=== PATIENT | female | born 1995 | race Caucasian/White ===

== ENCOUNTER 2019-04-04 12:25 | Emergency (ER) | payer OTHER, SELFPAY ==
[2019-04-04 12:31] VITALS: BP 117/71; PULSE 71; RESP 18; TEMP 36.2; O2SAT 99
--- NOTE | 2019-04-04 12:54 | ED.FEMALEGU ---
HPI - Female Genitourinary General Chief complaint: Urogenital-Female Stated complaint: UTI SYMPTOMS Source: patient and RN notes reviewed Mode of arrival: ambulatory Limitations: no limitations History of Present Illness HPI Narrative: The patient, previously mostly healthy non-smoker/occasional drinker, presents with a shorter couple day history of urinary frequency, urgency and dysuria. No fever, low back pain, vaginal discharge [she declines STD testing, indicating she has had prior and recent [employer] evaluation]. Symptoms are mild, worse with urination; Prior UTI last summer with haile-sensitive E. coli Related Data Allergies Allergy/AdvReac Type Severity Reaction Status Date / Time lactose Allergy Intermediate Nausea and Verified 04/04/19 12:30 Vomiting peach Allergy Intermediate Other Verified 04/04/19 12:30 Review of Systems Review of Systems: Narrative: General/Constitutional: No weight loss,fever Eyes: N0: Redness,discharge Ears/Nose/Throat: No: Epistaxis,ear discharge Respiratory: Denies: Hemoptysis Gastrointestinal: No Vomiting, Bleeding-rectal Skin: No Lumps, eruption Neurologic: No Focal Weakness,Sz Hematologic: Denies: Petechiae/Purpura Psychiatric: No: Suicida ideationl All Other Systems: Reviewed and Negative [facility] Social History Social History Smoking status: Never smoker Second hand tobacco smoke exposure: No Alcohol intake: current Comments At time of signature, agree with nursing past medical, surgical, social and family history. There is no relevant family history pertinent to the presenting complaint Exam Narrative: Exam Narrative: General Appearance: Well appearing, No distress EYE: PERRLA, Conjunctiva clear Ears: External ear normal Nose: Normal nose Mouth/Throat: Normal appearing, Normal lips Neck: Supple Respiratory: Airway patent, No respiratory distress Cardiovascular: RRR Abdomen: Soft, Non-tender, No massess, No organomegaly (no rebound/ surgical signs), Musculoskeletal: Full ROM Skin: Warm, Dry Neurological: A&O x3, CN II-X intact Psychiatric: Normal mood, Normal affect Course Vital Signs Vital signs: Vital Signs Temperature 97.1 F L 04/04/19 12:31 Pulse Rate 71 04/04/19 12:31 Respiratory Rate 18 04/04/19 12:31 Blood Pressure 117/71 04/04/19 12:31 Pulse Oximetry 99 04/04/19 12:31 Temperature 97.1 F L 04/04/19 12:31 Pulse Rate 71 04/04/19 12:31 Respiratory Rate 18 04/04/19 12:31 Blood Pressure 117/71 04/04/19 12:31 Pulse Oximetry 99 04/04/19 12:31 MDM - Female Genitourinary Lab Data Labs: Urine Glucose Negative Reference Range: Negative Urine Bilirubin Negative Reference Range: Negative Urine Ketone Negative Reference Range: Negative Urine Specific [place] 1.025 Reference Range:1.001-1.035 Urine Blood 2+ Reference Range: Negative * * Urine pH 7.5 Reference Range: 5.0-9.0 Urine Protein 2+ Reference Range: Negative Urine Urobilinogen 0.2 Reference Range: 0.2-1.0 Urine Nitrate Positive Reference Range: Negative Urine Leukocyte 2+ Reference Range: Negative Urine Color Yellow Reference Range: Yellow Urine Characteristics Cloudy Discharge Plan Discharge Clinical Impression: Urinary tract infection Qualifiers: Urinary tract infection type: acute cystitis Hematuria presence: without hematuria Qualified Code(s): N30.00 - Acute cystitis without hematuria Patient Disposition: Home, Self-Care Condition: Stable Instructions: Antibiotic Form, Urinary Tract Infection in Women (ED) Prescriptions:
== END 2019-04-04 12:45 | disposition home or self-care (01) ==
PROVIDERS: Emergency Provider Emergency Medicine; PCP Student in an Organized Health Care Education/Training Program
DX: N30.00 Acute cystitis without hematuria (principal)
CPT/HCPCS: 81003; 99213; G0463

== ENCOUNTER 2020-07-05 11:13 | Emergency (ER) | payer BC, SELFPAY ==
[2020-07-05 11:19] VITALS: BP 126/78; PULSE 111; RESP 12; TEMP 36.8; O2SAT 98
--- NOTE | 2020-07-05 11:32 | ED.URI ---
HPI - URI/Sore Throat General Chief Complaint: Upper Respiratory Infection Stated Complaint: upper respiratory infection Time Seen by Provider: 07/05/20 11:32 Source: patient Mode of arrival: ambulatory Limitations: no limitations History of Present Illness HPI Narrative: 24 year old female who presents to [facility] with complaints of sore throat, cough, nasal congestion and drainage starting on Saturday night. On Saturday she has experienced episodes of diarrhea with complaints of nausea with no vomiting and headache pain with complaints today of loss of taste and smell. 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 Patient states that she knows of no fevers, chills or sweats, denies any shortness of breath or any wheezing. MD elicited complaint: cough, sore throat, rhinorrhea, nasal congestion and other (diarrhea) Onset (ago): day(s) (2 1/2 days ago ) Consistency: constant Severity: moderate Description of mucous: clear Able to tolerate fluids by mouth: Yes Exacerbating factors: swallowing Relieving factors: nothing Associated symptoms: headache, rhinorrhea, nasal congestion, sore throat, cough and diarrhea Treatments prior to arrival: acetaminophen, ibuprofen and cold medicine Related Data Allergies Allergy/AdvReac Type Severity Reaction Status Date / Time lactose Allergy Intermediate Nausea and Verified 03/11/20 11:34 Vomiting peach Allergy Intermediate Other Verified 03/11/20 11:34 Review of Systems Review of Systems: Narrative: CONSTITUTIONAL: Denies fever, chills, or sweats. EYES: Denies visual changes, redness, or discharge. ENT: Positive rhinorrhea, congestion,positive sore throat, no otalgia. CARDIOVASCULAR: Denies chest pain, palpitations, or edema. RESPIRATORY:Positive for cough denies dyspnea. GASTROINTESTINAL: Denies abdominal pain,positive nausea,diarrhea no vomiting GENITOURINARY: Denies dysuria or hematuria. SKIN: Denies rash or itching. MUSCULOSKELETAL: Denies back pain, joint pain, or myalgia. NEUROLOGIC: Positive headache,no numbness, or weakness. PSYCHIATRIC: Denies anxiety or depression. All systems reviewed & are unremarkable except as noted in HPI and below PMFSH Past Medical History Medical History (Updated 07/07/20 @ 14:50 by Nyla Clark NP) GERD (gastroesophageal reflux disease) IBS (irritable bowel syndrome) Surgical History Surgical History History of cholecystectomy Family History Family History (Updated 07/07/20 @ 14:43 by Nyla Clark NP) Other No significant family history Social History Social History (Updated 07/05/20 @ 11:36 by Nyla Clark NP) Smoking status: Never smoker Tobacco type: e-cigarettes/vaping Second hand tobacco smoke exposure: No Alcohol intake: current Comments At time of signature, agree with nursing past medical, surgical, social and family history. There is no relevant family history pertinent to the presenting complaint Exam Narrative: Exam Narrative: GENERAL: Well-appearing, well-nourished, and in no acute distress. HEAD: Normocephalic, atraumatic. EYES: PERRLA and EOMI. ENT: Nares mild redness with clear rhinorrhea no epistaxis. Mucous membranes moist.TM's normal with good light reflex, throat mildly red with no lesions or exudates, no tonsil hypertrophy. NECK: Supple.no lymphadenopathy CHEST: Clear to auscultation. No respiratory distress.no acute loose sounding cough, no tachypnea or accessory muscle use, SAO2 98% on room air. HEART: Regular rate and rhythm. No murmur heard. Normal peripheral pulses. ABDOMEN: Soft, nontender, nondistended, normal active bowel sounds.reports nausea with diarrhea stools X2 today denies any blood or mucoid stools EXTREMITIES: Normal range of motion. No edema. SKIN: Warm, dry, no rash. NEURO: No focal deficits. Alert an
[2020-07-06 17:04] LABS: SARS-CoV-2 RNA PCR Negative
== END 2020-07-05 12:22 | disposition home or self-care (01) ==
PROVIDERS: Emergency Provider Registered Nurse
DX: J06.9 Acute upper respiratory infection, unspecified (principal); Z20.822 Contact with and (suspected) exposure to COVID-19; F17.200 Nicotine dependence, unspecified, uncomplicated; K21.9 Gastro-esophageal reflux disease without esophagitis
CPT/HCPCS: 87081; 87426; 87804; 87880; 99213; C9803; G0463; U0003; U0005

== ENCOUNTER 2020-08-08 17:17 | Emergency (ER) | payer BC, SELFPAY ==
[2020-08-08 17:22] VITALS: BP 124/78; PULSE 81; RESP 16; TEMP 36.8; O2SAT 100
--- NOTE | 2020-08-08 17:24 | ED.EAR ---
HPI - Ear Problem General Chief complaint: Ear Stated complaint: ear pain Time Seen by Provider: 08/08/20 17:24 Source: patient and RN notes reviewed History of Present Illness HPI Narrative: Patient is a 24-year-old female who presents the urgent care with complaints of right ear pain that started this morning. Patient states that its been really aggravating throughout the day. Denies of any use of [id number] medication for her pain. Denies of any fever, chills, nausea, vomiting, other upper respiratory complaints. No other acute complaints. No acute distress noted. Patient aware of the plan of care. Some parts of this dictation were generated by voice recognition software and may contain typographical and/or grammatical inaccuracies. Related Data Allergies Allergy/AdvReac Type Severity Reaction Status Date / Time lactose Allergy Intermediate Nausea and Verified 08/08/20 17:28 Vomiting peach Allergy Intermediate Other Verified 08/08/20 17:28 Review of Systems Review of Systems: Narrative: CONSTITUTIONAL: Denies fever, chills, or sweats. EYES: Denies visual changes, redness, or discharge. ENT: Reports of right otalgia CARDIOVASCULAR: Denies chest pain, palpitations, or edema. RESPIRATORY: Denies cough or dyspnea. GASTROINTESTINAL: Denies abdominal pain, nausea, vomiting, or diarrhea. GENITOURINARY: Denies dysuria or hematuria. SKIN: Denies rash or itching. MUSCULOSKELETAL: Denies back pain, joint pain, or myalgia. NEUROLOGIC: Denies headache, numbness, or weakness. All other systems reviewed are negative, except as documented in HPI. ON LICENSE OF [facility] Past Medical History Medical History (Updated 08/08/20 @ 17:30 by KATINA Lamar) GERD (gastroesophageal reflux disease) IBS (irritable bowel syndrome) Surgical History Surgical History History of cholecystectomy Family History Family History (Updated 07/07/20 @ 14:43 by Nyla Clark NP) Other No significant family history Social History Social History (Updated 07/05/20 @ 11:36 by Nyla Clark NP) Smoking status: Never smoker Tobacco type: e-cigarettes/vaping Second hand tobacco smoke exposure: No Alcohol intake: current Comments At the time of my signature, I reviewed and agree with the nursing past medical, surgical, social, and family history. There is no relevant family history pertinent to the patient complaint. Exam Narrative: Exam Narrative: GENERAL: This is a well-nourished, well-developed patient, in no apparent distress. HEAD: normocephalic, atraumatic. EYES: PERRL. Sclera clear/white. Vision is grossly intact. EARS: External ears normal, auditory canals clear and without drainage, very mild fluid noted behind right TM without otitis, bilateral TMs normal without perforation. Hearing grossly intact. NOSE: External nose normal with no obvious nasal discharge, nares without redness, no rhinorrhea. THROAT: Mucous membranes moist, posterior pharynx clear. NECK: Neck supple, non-tender without lymphadenopathy, masses or thyromegaly. CARDIOVASCULAR: Regular rate and rhythm without murmurs, gallops, or rubs. RESPIRATORY: Clear to auscultation. Breath sounds equal bilaterally. No wheezes, rales, or rhonchi. SKIN: warm, intact with no suspicious lesions or rash, good texture and turgor. NEURO: awake, alert, and oriented to person, place and time. There were no obvious focal neurologic abnormalities. EXTREMITIES: No clubbing, cyanosis, or edema. Course Vital Signs Vital signs: Vital Signs Temperature 98.2 F 08/08/20 17:22 Pulse Rate 81 08/08/20 17:22 Respiratory Rate 16 08/08/20 17:22 Blood Pressure 124/78 08/08/20 17:22 Pulse Oximetry 100 08/08/20 17:22 Temperature 98.2 F 08/08/20 17:22 Pulse Rate 81 08/08/20 17:22 Respiratory Rate 16 08/08/20 17:22 Blood Pressure 124/78 08/08/20 17:22 Pulse Oximetry 100 08/08/20 17:22 Review
== END 2020-08-08 17:34 | disposition home or self-care (01) ==
PROVIDERS: Emergency Provider Nurse Practitioner Family
DX: H92.01 Otalgia, right ear (principal); K21.9 Gastro-esophageal reflux disease without esophagitis
CPT/HCPCS: 99211; G0463

== ENCOUNTER 2020-11-16 11:07 | Emergency (ER) | payer BC, SELFPAY ==
[2020-11-16 11:17] VITALS: BP 128/75; PULSE 82; RESP 16; TEMP 36.8; O2SAT 100
--- NOTE | 2020-11-16 11:49 | ED.URI ---
HPI - URI/Sore Throat General Chief Complaint: Upper Respiratory Infection Stated Complaint: CONGESTION/SORE THROAT Time Seen by Provider: 11/16/20 11:39 Source: patient and RN notes reviewed Mode of arrival: ambulatory Limitations: no limitations History of Present Illness HPI Narrative: Patient presents today with a 2 to 3-day history of nasal congestion, postnasal drip, headache. Denies fever or shortness of breath. She has been taking ibuprofen for her headache with mild relief. She has been vaccinated against COVID-19. States she ate a granola bar this morning and had decreased taste MD elicited complaint: nasal congestion Related Data Allergies Allergy/AdvReac Type Severity Reaction Status Date / Time lactose Allergy Intermediate Nausea and Verified 08/08/20 17:28 Vomiting peach Allergy Intermediate Other Verified 08/08/20 17:28 Review of Systems Review of Systems: CONSTITUTIONAL: Denies body aches, fever, chills, or sweats. EYES: Denies visual changes, redness, or discharge. ENT: Denies rhinorrhea, sore throat, or otalgia.+ Nasal congestion, postnasal drip, decreased taste CARDIOVASCULAR: Denies chest pain, palpitations, or edema. RESPIRATORY: Denies cough or dyspnea. GASTROINTESTINAL: Denies abdominal pain, nausea, vomiting, or diarrhea. GENITOURINARY: Denies dysuria or hematuria. SKIN: Denies rash, itching, or wounds. MUSCULOSKELETAL: Denies back pain, joint pain, or myalgia. NEUROLOGIC: Denies numbness, tingling, or weakness.+ Headache PSYCH: Denies depression or anxiety. [facility] Past Medical History Medical History GERD (gastroesophageal reflux disease) IBS (irritable bowel syndrome) Surgical History Surgical History History of cholecystectomy Family History Family History Other No significant family history Social History Social History Smoking status: Never smoker Tobacco type: e-cigarettes/vaping Second hand tobacco smoke exposure: No Alcohol intake: current Comments At time of signature, I have reviewed and agree with nursing past medical, surgical, social and family history unless otherwise noted. Please see nursing chart for further information. There is no relevant family history pertinent to the presenting complaint Exam Narrative: GENERAL: Well-appearing, well-nourished, and in no acute distress. HEAD: Normocephalic, atraumatic. EYES: EOMI. No redness or drainage. Conjunctivae normal. ENT: Mucous membranes pink and moist. Nares congested. No rhinorrhea. TMs normal bilaterally. Throat normal. Uvula midline. NECK: Normal AROM. Supple. No lymphadenopathy. CHEST: No respiratory distress. Clear to auscultation. HEART: Regular rate and rhythm. No murmur appreciated. Normal peripheral pulses. EXTREMITIES: Normal range of motion. No edema. SKIN: Warm, dry, no rash. Capillary refill normal. Normal skin turgor. NEURO: No focal deficits. Alert and oriented x3. Gait steady. PSYCH: Normal affect. No signs of depression or anxiety. Course Vital Signs Vital signs: Vital Signs Temperature 98.2 F 11/16/20 11:17 Pulse Rate 82 11/16/20 11:17 Respiratory Rate 16 11/16/20 11:17 Blood Pressure 128/75 11/16/20 11:17 Pulse Oximetry 100 11/16/20 11:17 Temperature 98.2 F 11/16/20 11:17 Pulse Rate 82 11/16/20 11:17 Respiratory Rate 16 11/16/20 11:17 Blood Pressure 128/75 11/16/20 11:17 Pulse Oximetry 100 11/16/20 11:17 Reviewed. Pt has been instructed to follow up with her PCP regarding her elevated blood pressure today. MDM - URI/Sore Throat Differential Diagnosis Differential diagnosis: Likely upper respiratory infection, sinusitis, viral infection and other (COVID-19) Lab Data Attestation: I reviewed
== END 2020-11-16 12:20 | disposition home or self-care (01) ==
PROVIDERS: Emergency Provider Nurse Practitioner
DX: J06.9 Acute upper respiratory infection, unspecified (principal); Z20.822 Contact with and (suspected) exposure to COVID-19; F17.200 Nicotine dependence, unspecified, uncomplicated; K21.9 Gastro-esophageal reflux disease without esophagitis
CPT/HCPCS: 87426; 99213; C9803; G0463

== ENCOUNTER 2021-09-05 07:06 | Emergency (ER) | payer BC, SELFPAY ==
--- NOTE | ~2021-09-05 | US_ITS ---
EXAMINATION: US pelvic complete w TV DATE: 09/05/2021 07:47 INDICATION: Right adnexal pain. TECHNIQUE: Multiple transabdominal and transvaginal sonographic images of the pelvis were obtained. COMPARISON: Ultrasound 07/30/2017 FINDINGS: TRANSABDOMINAL ULTRASOUND: The uterus measures 6.2 x 4.7 x 4.0 cm. There is physiologic free fluid in the pelvis. TRANSVAGINAL ULTRASOUND: The endometrial complex measures 5 mm in thickness. There is a 2.5 cm subserosal fibroid. The right o vary measures 4.5 x 4.2 x 3.8 cm. There is a 3.8 cm cyst in right ovary. There is normal vascular vee w in right ovary. The left ovary is not visualized. IMPRESSION: 1. 3.8 cm cyst in right ovary, likely a follicular cyst. 2. Uterine fibroid. Reviewed, dictated and finalized at location A.
[2021-09-05 07:09] VITALS: BP 146/101; PULSE 99; RESP 16; TEMP 36.7; O2SAT 99
--- NOTE | 2021-09-05 07:18 | ED.ABDPAIN ---
HPI - Abdominal Pain General Chief Complaint: Abdominal Pain Stated Complaint: lower ABD pain Time Seen by Provider: 09/05/21 07:12 History of Present Illness HPI narrative: 25-year-old female presents emergency room secondary some right lower abdominal pain. Is been going on for several days now progressively worse. She had a history of ovarian cyst in the past she thinks that maybe was going on at this time. She is on control pills her last menstrual period was noted to be 2 weeks ago. Denies any chills fevers nausea vomiting. She got a good appetite. No urinary complaints been noted. 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 Related Data Allergies Allergy/AdvReac Type Severity Reaction Status Date / Time peach Allergy Intermediate Other Verified 09/05/21 07:17 lactose AdvReac Intermediate Nausea and Verified 09/05/21 07:19 Vomiting Review of Systems Review of Systems: CONSTITUTIONAL: Denies fever, chills, or sweats. EYES: Denies visual changes, redness, or discharge. ENT: Denies rhinorrhea, congestion, sore throat, or otalgia. CARDIOVASCULAR: Denies chest pain, palpitations, or edema. RESPIRATORY: Denies cough or dyspnea. GASTROINTESTINAL: Denies nausea, vomiting, or diarrhea. Pain in the right suprapubic region GENITOURINARY: Denies dysuria or hematuria. SKIN: Denies rash or itching. MUSCULOSKELETAL: Denies back pain, joint pain, or myalgia. NEUROLOGIC: Denies headache, numbness, or weakness. PSYCHIATRIC: Denies anxiety or depression. PMFSH Past Medical History Medical History GERD (gastroesophageal reflux disease) History of COVID-19 01/2021 IBS (irritable bowel syndrome) Surgical History Surgical History History of cholecystectomy Family History Family History Other No significant family history Social History Social History Smoking status: Never smoker Tobacco type: e-cigarettes/vaping Second hand tobacco smoke exposure: No Alcohol intake: current Exam Narrative: APPEARANCE: Well appearing, no pain or distress, well-nourished. Head normocephalic and atraumatic. EYES: PERRLA/EOMI, conjunctivae very clear. NOSE: Normal with no drainage EARS:TMS clear Sarwat Garcia, with good light reflex. THROAT: Pharynx clear, no exudate. NECK: Supple. No adenopathy, no masses. RESPIRATORY: Airway patent, respirations nonlabored. Clear to auscultation bilaterally, no rales, rhonchi, wheezing. CARDIOVASCULAR: Regular rate and rhythm without murmurs, rubs, or gallops. ABDOMINAL: Soft, nondistended, no hepatosplenomegaly. Right suprapubic pain noted. No rebound rigidity guarding. Musculoskeletal: Moves all extremities. Strength/ROM intact, No edema, No calf tenderness. NEURO: Alert. Cranial nerves II through XII intact. Normal gait. Good coordination. Nonfocal examination. SKIN:: Warm, dry. Normal Color PSYCHIATRIC: Normal affect/mood, normal interaction Course Vital Signs Vital signs: Vital Signs Temperature 98.1 F 09/05/21 07:09 Pulse Rate 99 09/05/21 07:09 Respiratory Rate 16 09/05/21 07:09 Blood Pressure 146/101 H 09/05/21 07:09 Pulse Oximetry 99 09/05/21 07:09 Oxygen Delivery Room Air 09/05/21 07:09 Temperature 98.1 F 09/05/21 07:09 Pulse Rate 99 09/05/21 07:09 Respiratory Rate 16 09/05/21 07:09 Blood Pressure 146/101 H 09/05/21 07:09 Pulse Oximetry 99 09/05/21 07:09 Oxygen Delivery Room Air 09/05/21 07:09 MDM - Abdominal Pain MDM Narrative Medical decision making narrative: Ultrasound confirmed that she has a right ovarian cyst. Copy the ultrasound report was actually given to her so she can take it to her physician. This is just pain management. Patient now confesses that she has not been taking h
[2021-09-05] MEDS: NAPROXEN 500 MG TABLET PO (07:30)
[2021-09-05 08:00] LABS: Appearance Urine Slightly Cloudy (Clear); Bilirubin Urine Negative (Negative); Blood Urine Trace-lysed (Negative); Color Urine Yellow (Yellow); Glucose Urine UA Negative (Negative); Ketones Urine Negative (Negative); Leukocyte Esterase Ur Negative LEU/UL (Negative); Nitrate Urine Negative (Negative); Protein Urine Negative (Negative); Specific Grav Ur 1.025 (1.001-1.035); Urobilinogen Urine 0.2 mg/dL (<2.0); pH Urine 5.5 (5.0-9.0)
[2021-09-05 08:06] LABS: Bacteria Urine 3+ /hpf; Mucus Urine Few /lpf; RBC Urine 0-2 /hpf (0-2); Squamous Epithelial Cell Urine Many /hpf (Few)
[2021-09-05 08:07] LABS: Add Urine Microscopic? YES
== END 2021-09-05 08:21 | disposition home or self-care (01) ==
PROVIDERS: Emergency Provider Emergency Medicine
DX: N83.201 Unspecified ovarian cyst, right side (principal); R10.9 Unspecified abdominal pain; K21.9 Gastro-esophageal reflux disease without esophagitis; Z86.16 Personal history of COVID-19
CPT/HCPCS: 76830; 76856; 81001; 81025; 99284; A9270

== ENCOUNTER 2021-12-15 00:09 | Emergency (ER) | payer BC, SELFPAY ==
--- NOTE | ~2021-12-15 | CT_ITS ---
EXAMINATION: CT abdomen pelvis w con DATE: 12/15/2021 03:41 INDICATION: Right lower quadrant pain TECHNIQUE: Computed tomography (CT) of the abdomen and pelvis was performed with 100 cc Omnipaque 350 intravenous contrast. The dose-length product was 582.89 mGy-cm. Automated exposure control and iter ative reconstruction technique were employed. COMPARISON: CT dated 12/15/2021. FINDINGS: Lung bases are unremarkable. Heart size normal. No significant pleural or pericardial effus ion. There are cholecystectomy clips. The spleen, pancreas, adrenal glands and left kidney are unrema rkable. There is a 3 mm obstructing distal right ureteral stone near the UVJ with mild hydroureterone phrosis. There is asymmetrically delayed right renal nephrogram consistent with high-grade obstructio n. Mild perinephric edema. There is a 5 x 3.7 cm right ovarian cyst. Nonobstructing bowel gas pattern. Normal appendix. No acute osseous abnormality. Mild spondylosis at L5-S1. IMPRESSION: 1. Distal right ureteral stone measuring 3 mm with obstruction resulting in mild hydronephrosis and d elayed right renal nephrogram. 2: Right ovarian cyst measuring 5 cm. Reviewed, dictated and finalized at location A. IMPRESSION: 1. Distal right ureteral stone measuring 3 mm with obstruction resulting in mil d hydronephrosis and delayed right renal nephrogram. 2: Right ovarian cyst measuring 5 cm.
[2021-12-15 00:11] VITALS: BP 134/82; PULSE 80; RESP 18; TEMP 36.3; O2SAT 100
--- NOTE | 2021-12-15 01:15 | ED.ABDPAIN ---
HPI - Abdominal Pain General Chief Complaint: Back Pain/Injury Stated Complaint: back pain Time Seen by Provider: 12/15/21 00:49 History of Present Illness HPI narrative: This is a 26-year-old female with past medical history of right-sided ovarian cyst and cholecystectomy, who presents to the emergency department complaining of right lower quadrant abdominal pain. She states pain began earlier this evening, is described as dull and cramping, 6 out of 10, radiating towards the pelvis and groin, associated with some nausea. She states the pain initially improved with ibuprofen but has returned and has not improved. She states she had a bowel movement today and is able to pass gas. She states she is currently on her menstrual cycle. She has no other complaints. Related Data Allergies Allergy/AdvReac Type Severity Reaction Status Date / Time peach Allergy Intermediate Other Verified 12/15/21 02:58 lactose AdvReac Intermediate Nausea and Verified 12/15/21 02:58 Vomiting Review of Systems Review of Systems: CONSTITUTIONAL: Denies fever, chills, or sweats. EYES: Denies visual changes, redness, or discharge. ENT: Denies rhinorrhea, congestion, sore throat, or otalgia. CARDIOVASCULAR: Denies chest pain, palpitations, or edema. RESPIRATORY: Denies cough or dyspnea. GASTROINTESTINAL: Abdominal pain, nausea denies vomiting, or diarrhea. GENITOURINARY: Denies dysuria or hematuria. SKIN: Denies rash or itching. MUSCULOSKELETAL: Denies back pain, joint pain, or myalgia. NEUROLOGIC: Denies headache, numbness, dizziness, or weakness. PSYCHIATRIC: Denies anxiety or depression. [facility] Past Medical History Medical History GERD (gastroesophageal reflux disease) History of COVID-19 01/2021 IBS (irritable bowel syndrome) Surgical History Surgical History History of cholecystectomy Family History Family History Other No significant family history Social History Social History Smoking status: Never smoker Tobacco type: e-cigarettes/vaping Second hand tobacco smoke exposure: No Alcohol intake: current Exam Narrative: GENERAL: Well-developed, well-nourished, appears uncomfortable HEAD: Normocephalic, atraumatic. EYES: PERRLA and EOMI. ENT: Nares clear, no rhinorrhea or epistaxis. Mucous membranes moist. Oropharynx without tonsillar hypertrophy exudate or other lesions. NECK: Supple. No adenopathy or masses. No carotid bruits or JVD CHEST: Clear to auscultation. No respiratory distress. No wheezes rales or rhonchi HEART: Regular rate and rhythm. No murmur heard. Normal peripheral pulses. ABDOMEN: Soft, tender to palpation in the right lower quadrant without rebound, nondistended, normal active bowel sounds. EXTREMITIES: Normal range of motion. No edema. SKIN: Warm, dry, no rash. NEURO: No focal deficits. Alert and oriented x3. PSYCH: Normal mood and affect. Course Course Emergency Course: 04:20 - Reassessed patient, she feels improved. CT shows a 2 x 2mm right-sided kidney stone with hydronephrosis. Discussed recommendations for NSAIDs, Flomax and follow-up primary care. Discussed return emergency precautions including signs/symptoms of pyelonephritis, acute abdomen and sepsis. The patient voiced understanding is comfortable to plan. All questions answered to her satisfaction. Vital Signs Vital signs: Vital Signs Temperature 97.4 F L 12/15/21 00:11 Pulse Rate 80 12/15/21 00:11 Respiratory Rate 18 12/15/21 00:11 Blood Pressure 134/82 12/15/21 00:11 Pulse Oximetry 100 12/15/21 00:11 Oxygen Delivery Room Air 12/15/21 00:11 Temperature 97.4 F L 12/15/21 00:11 Pulse Rate 64 12/15/21 04:42 Respiratory Rate 15 12/15/21 04:42 Blood Pressure 123/84 12/15/21
[2021-12-15 02:57] VITALS: BP 122/60; PULSE 68; RESP 15; O2SAT 97
--- NOTE | 2021-12-15 02:59 | PC.NURSE ---
compazine 10mg IV and morphine 4mg IV given at 0200. pain rating 8 at time of medication given. pain rating at this time 4
[2021-12-15 03:59] LABS: Basophils Percent Auto 0.3 % (0.2-1.2); Eosinophils Absolute Auto 0.1 K/mm3 (0-0.3); Eosinophils Percent Auto 0.8 % (0-4.4); Hematocrit 34.4 % (37.0-47.0); Hemoglobin 11.5 g/dL (12.0-15.0); Immature Granulocyte Absolute 0.02 K/mm3 (0.00-0.031); Immature Granulocyte Percent A 0.2 % (0-0.5); Lymphocytes Absolute Auto 2.11 K/mm3 (0.9-3.2); Lymphocytes Percent Auto 21.5 % (18.3-44.2); Mean Corpuscular HGB Conc 33.4 g/dl (32-36); Mean Corpuscular Hemoglobin 29.1 pg (26-34); Mean Corpuscular Volume 87.1 fl (80-100); Mean Platelet Volume 10.3 fl (7.4-10.4); Monocytes Absolute Auto 0.6 K/mm3 (0.1-0.6); Monocytes Percent Auto 6.5 % (2.6-8.5); Neutrophils Absolute Auto 6.9 K/mm3 (1.3-6.7); Neutrophils Percent Auto 70.7 % (45.5-73.1); Platelet Count Result 252 k/mm3 (150-375); Red Blood Count 3.95 M/mm3 (4.2-5.4); Red Cell Distribution Width 12.5 % (11.5-14.5); White Blood Count 9.8 K/mm3 (4.5-10.0)
[2021-12-15 04:04] LABS: Add Urine Microscopic? YES; Appearance Urine Cloudy (Clear); Bacteria Urine Trace /hpf; Bilirubin Urine Negative (Negative); Blood Urine 2+ (Negative); Color Urine Yellow (Yellow); Glucose Urine UA Negative (Negative); Ketones Urine Trace mg/dL (Negative); Leukocyte Esterase Ur Negative LEU/UL (Negative); Mucus Urine Few /lpf; Nitrate Urine Negative (Negative); Protein Urine 1+ mg/dL (Negative); Specific Grav Ur 1.033 (1.001-1.035); Squamous Epithelial Cell Urine Many /hpf (Few); Urobilinogen Urine Negative mg/dL (<2.0)
--- NOTE | 2021-12-15 04:15 | PC.NURSE ---
Pt given 1000 MG Ofirmev for pain rated 10/10 (declined Morphine) as ordered by EDP. Pt received full amount, 0 volume left in container. SEE PAPER CHARTING.
[2021-12-15 04:34] LABS: Anion Gap 8 mmol/L (8-16); Blood Urea Nitrogen 15 mg/dL (7-17); Carbon Dioxide 24 mmol/L (22-30); Chloride 105 mmol/L (98-107); Potassium 4.4 mmol/L (3.4-5.0); Sodium 137 mmol/L (137-145)
[2021-12-15 04:35] LABS: Estimated CRCL calculation 71 ml/min; Estimated Glomerular Filt Rate > 60; Glucose 123 mg/dL (65-110)
[2021-12-15 04:36] LABS: Alanine Aminotransferase 15 U/L (6-35); Albumin Level 4.2 g/dL (3.5-5.1); Alkaline Phosphatase 50 U/L (38-126); Aspartate Amino Transferase 19 U/L (14-36); Calcium 9.1 mg/dL (8.4-10.2)
--- NOTE | 2021-12-15 04:41 | PC.NURSE ---
Pt given ordered 30MG Toradol IVP as ordered by EDP, rates pain a 4/10 currently. DOWN TIME, SEE PAPER CHART.
[2021-12-15 04:42] VITALS: BP 123/84; PULSE 64; RESP 15; O2SAT 100
[2021-12-15 04:49] LABS: Lipase 64 U/L (23-300)
[2021-12-15 05:10] LABS: Bilirubin,Total 0.2 mg/dL (0.2-1.3)
== END 2021-12-15 04:44 | disposition home or self-care (01) ==
PROVIDERS: Emergency Provider Preventive Medicine Aerospace Medicine
DX: N20.0 Calculus of kidney (principal); R10.31 Right lower quadrant pain; K21.9 Gastro-esophageal reflux disease without esophagitis; Z86.16 Personal history of COVID-19
CPT/HCPCS: 36415; 74177; 80053; 81001; 81025; 83690; 85025; 96374; 96375; 99284; J0131; J0780; J2270; Q9967

== ENCOUNTER 2022-10-11 12:02 | Emergency (ER) | payer BC, SELFPAY ==
[2022-10-11 12:16] VITALS: BP 126/83; PULSE 83; RESP 16; TEMP 36.6; O2SAT 100
--- NOTE | 2022-10-11 12:22 | ED.URI ---
HPI - URI/Sore Throat General Chief Complaint: Upper Respiratory Infection Stated Complaint: SORE THROAT Time Seen by Provider: 10/11/22 12:22 Source: patient Mode of arrival: ambulatory Limitations: no limitations History of Present Illness HPI Narrative: 26-year-old female presents with complaint of nasal congestion, sore throat, fatigue for 3 days. Reports sore throat was like swallowing razor blades yesterday. States sore throat pain not as bad today. Denies nausea vomiting. Afebrile. Patient has a to attend the next 2 days and wants to make sure that she does not have strep. All systems reviewed and negative except as noted above. Related Data Allergies Allergy/AdvReac Type Severity Reaction Status Date / Time peach Allergy Intermediate Other Verified 10/11/22 12:11 lactose AdvReac Intermediate Nausea and Verified 10/11/22 12:11 Vomiting Review of Systems Review of Systems: CONSTITUTIONAL: Denies fever, chills, or sweats. Reports fatigue. EYES: Denies visual changes, redness, or discharge. ENT: Reports rhinorrhea, congestion, sore throat. Denies otalgia. CARDIOVASCULAR: Denies chest pain, palpitations, or edema. RESPIRATORY: Denies cough or dyspnea. GASTROINTESTINAL: Denies abdominal pain, nausea, vomiting, or diarrhea. GENITOURINARY: Denies dysuria or hematuria. SKIN: Denies rash or itching. MUSCULOSKELETAL: Denies back pain, joint pain, or myalgia. NEUROLOGIC: Denies headache, numbness, or weakness. PSYCHIATRIC: Denies anxiety or depression. All other systems reviewed are negative, except as documented in HPI. [facility] Past Medical History Medical History GERD (gastroesophageal reflux disease) History of COVID-19 01/2021 IBS (irritable bowel syndrome) Surgical History Surgical History History of cholecystectomy Family History Family History Other No significant family history Social History Social History Smoking status: Never smoker Tobacco type: e-cigarettes/vaping Second hand tobacco smoke exposure: No Alcohol intake: current Comments At time of signature, agree with nursing past medical, surgical, social and family history. There is no relevant family history pertinent to the presenting complaint. Exam Narrative: GENERAL: This is a well-nourished, well-developed patient, in no apparent distress. HEAD: normocephalic, atraumatic. EYES: PERRL. Sclera clear/white. Vision is grossly intact. EARS: External ears normal, auditory canals clear and without drainage, TMs normal without perforation. Hearing grossly intact. NOSE: External nose normal with no obvious nasal discharge, nares without redness, no rhinorrhea. Mild congestion. THROAT: Mucous membranes moist, posterior pharynx clear. NECK: Neck supple, non-tender without lymphadenopathy, masses or thyromegaly. CARDIOVASCULAR: Regular rate and rhythm without murmurs, gallops, or rubs. RESPIRATORY: Clear to auscultation. Breath sounds equal bilaterally. No wheezes, rales, or rhonchi. SKIN: warm, Dry, intact with no suspicious lesions or rash, good texture and turgor. NEURO: awake, alert, and oriented to person, place and time. There were no obvious focal neurologic abnormalities. EXTREMITIES: No joint tenderness, effusion, or edema noted. Course Course Level of Care: Express Care Visit Vital Signs Vital signs: Vital Signs Temperature 36.6 C 10/11/22 12:16 Pulse Rate 83 10/11/22 12:16 Respiratory Rate 16 10/11/22 12:16 Blood Pressure 126/83 10/11/22 12:16 Pulse Oximetry 100 10/11/22 12:16 Temperature 36.6 C 10/11/22 12:16 Pulse Rate 83 10/11/22 12:16 Respiratory Rate 16 10/11/22 12:16 Blood Pressure 126/83 10/11/22 12:16 Pulse Oximetry 100 08/1
== END 2022-10-11 12:55 | disposition home or self-care (01) ==
PROVIDERS: Emergency Provider Nurse Practitioner Family
DX: J06.9 Acute upper respiratory infection, unspecified (principal); Z20.822 Contact with and (suspected) exposure to COVID-19; K21.9 Gastro-esophageal reflux disease without esophagitis; Z86.16 Personal history of COVID-19
CPT/HCPCS: 87081; 87426; 87880; 99213; C9803; G0463